=== PATIENT | male | born 1980 | race Caucasian/White ===

== ENCOUNTER 2018-10-06 09:02 | Emergency (ER) | payer OTHER ==
[2018-10-06 09:21] VITALS: BP 160/98; PULSE 114; TEMP 98.1; BMI 32.5
[2018-10-06] MEDS ORDERED: DIPHTH,PERTUSS(ACELL),TET 0.5 ML DISP.SYRIN IM ONE (09:41)
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
[2018-10-06 10:06] LABS: BASO % 0.6 % (0-2.0); EOS % 0.5 % (0-4.5); HEMATOCRIT 45.4 % (35.4-49); HEMOGLOBIN 15.1 GM/dL (11.7-16.9); LYMPH % 31.7 % (8-40); MCH 28.4 pg (25.7-33.7); MCHC 33.3 g/dl (32.0-35.9); MEAN CELL VOLUME 85.3 fl (80-96); MONO % 8.1 % (3.8-10.2); NEUT % 59.1 % (42.8-82.8); PLATELET COUNT 229 K/MM3 (134-434); RBC 5.32 M/mm3 (4.00-5.60); RDW 13.6 % (11.9-15.9); WHITE BLOOD COUNT 7.3 K/mm3 (4.0-10.0)
[2018-10-06] MEDS ORDERED: HIV POST EXPOSURE PROPHYLAXIS KIT NR ONE (10:35)
[2018-10-06 10:41] LABS: ALBUMIN 4.5 g/dl (3.4-5.0); ALK PHOS 56 U/L (45-117); ANION GAP 14 MMOL/L (8-16); BILIRUBIN,TOTAL 0.3 mg/dL (0.2-1); BLOOD UREA NITROGEN 18 mg/dL (7-18); CALCIUM 9.5 mg/dL (8.5-10.1); CHLORIDE 100 mmol/L (98-107); CHOLESTEROL 199 mg/dL (50-200); CO2 22 mmol/L (21-32); CREATININE 1.1 mg/dL (0.55-1.3); GAMMA GLUTAMYL TRANSPEPTIDASE 51 U/L (5-85); GLUCOSE,RANDOM 165 mg/dL (74-106); LDH 184 U/L (87-246); PHOSPHOROUS 2.4 mg/dL (2.5-4.9); POTASSIUM 3.9 mmol/L (3.5-5.1); SGOT/AST 25 U/L (15-37); SGPT/ALT 51 U/L (13-61); SODIUM 135 mmol/L (136-145); TOT PROT 7.9 g/dl (6.4-8.2); TRIGLYCERIDES 223 mg/dL (0-150); URIC ACID 10.7 mg/dL (2.6-7.2)
[2018-10-06] MEDS ORDERED: HIV POST EXPOSURE PROPHYLAXIS KIT PO ONE (11:34)
[2018-10-07 06:06] LABS: HBsAG SCREEN Negative (Negative)
== END 2018-10-06 11:38 | disposition home or self-care (01) ==
LOC: JERFT 09:02
PROC: 3E0234Z Introduction of Serum, Toxoid and Vaccine into Muscle, Percutaneous Approach (ICD-10-PCS; principal; 2018-10-06)
DX: S61.051A Open bite of right thumb without damage to nail, initial encounter (principal); S00.411A Abrasion of right ear, initial encounter; Z77.21 Contact with and (suspected) exposure to potentially hazardous body fluids; Y04.1XXA Assault by human bite, initial encounter; Y93.89 Activity, other specified; Y99.0 Civilian activity done for income or pay; Y92.59 Other trade areas as the place of occurrence of the external cause; Y07.9 Unspecified perpetrator of maltreatment and neglect
CPT/HCPCS: 36415; 80053; 82465; 82977; 83615; 84100; 84478; 84550; 85025; 86317; 86706; 86803; 87340; 87389; 90715; 99282-25